=== PATIENT | male | born 2000 | race Caucasian/White ===

== ENCOUNTER 2024-09-06 12:17 | Emergency (ER) | payer BC, SELFPAY ==
[2024-09-06 12:28] VITALS: BP 152/85; PULSE 109; RESP 16; TEMP 36.4; O2SAT 99
[2024-09-06 14:02] LABS: EDSTREPNEGPOS1 Negative (Negative)
--- NOTE | 2024-09-06 14:06 | ED_ITS ---
HPI - URI/Sore Throat General Chief Complaint: Upper Respiratory Infection Stated Complaint: Strep Symptoms Time Seen by Provider: 09/06/24 13:59 Source: patient and RN notes reviewed Mode of arrival: ambulatory Limitations: no limitations History of Present Illness HPI Narrative: Patient presents today with a 2 day history of sore throat and headache with a fever of 100.5 yesterday morning, but none since then. Denies cough, rhinorrhea, congestion, ear pain. He currently rates his pain 5/10 and has tried Tylenol with little relief. Patient also took 2 doses of amoxicillin yesterday from a leftover prescription. Denies known sick contacts. Related Data Allergies Allergy/AdvReac Type Severity Reaction Status Date / Time No Known Allergies Allergy Verified 09/06/24 12:32 [facility] Comments At time of signature, I have reviewed and agree with nursing past medical, surgical, social and family history unless otherwise noted. Please see nursing chart for further information. There is no relevant family history pertinent to the presenting complaint Exam Narrative: GENERAL: Well-appearing, well-nourished, and in no acute distress. HEAD: Normocephalic, atraumatic. EYES: EOMI. No redness or drainage. Conjunctivae normal. ENT: Mucous membranes pink and moist. Nares clear. No rhinorrhea. TMs normal bilaterally. Throat erythematous with moderate edema. Tonsils 3+ with white exudate. Uvula midline. NECK: Normal AROM. Supple. Bilateral anterior cervical chain lymphadenopathy. CHEST: No respiratory distress. Clear to auscultation. HEART: Regular rate and rhythm. No murmur appreciated. EXTREMITIES: Normal range of motion. No edema. SKIN: Warm, dry, no rash. Capillary refill normal. Normal skin turgor. NEURO: No focal deficits. Alert and oriented x3. Gait steady. PSYCH: Normal affect. No signs of depression or anxiety. Course Course Level of Care: Express Care Visit Vital Signs Vital signs: Vital Signs Temperature 97.6 F 09/06/24 12:28 Pulse Rate 109 H 09/06/24 12:28 Respiratory Rate 16 09/06/24 12:28 Blood Pressure 152/85 H 09/06/24 12:28 Pulse Oximetry 99 09/06/24 12:28 Temperature 97.6 F 09/06/24 12:28 Pulse Rate 109 H 09/06/24 12:28 Respiratory Rate 16 09/06/24 12:28 Blood Pressure 152/85 H 09/06/24 12:28 Pulse Oximetry 99 09/06/24 12:28 Reviewed MDM - URI/Sore Throat MDM Narrative Medical decision making narrative: 23-year-old male patient presents today complaining of sore throat and headache for 2 days with 1 time fever with a T-max of 100.5?. Denies any additional URI symptoms. He also took 2 doses of amoxicillin from leftover prescription. Rapid strep negative. Because patient is complaining of a sore throat but no other URI symptoms, along with his swollen and erythematous tonsils, he will be treated for presumed strep throat with amoxicillin. Tachycardia likely due to infection. Discussion with patient about finishing full course antibiotics. Anticipatory guidance given. Differential Diagnosis Differential diagnosis: Likely upper respiratory infection, viral infection, pharyngitis and other (Strep throat, mononucleosis) Lab Data Attestation: I reviewed the patient's lab results. Labs: Lab Results 09/06/24 Range/Units 13:59 POC Grp A Strep Screen Negative (Negative) Critical Care Time Critical Care Time Critical Care Time: No Discharge Plan Discharge Clinical Impression: Pharyngitis Qualifiers: Pharyngitis/tonsillitis etiology: unspecified etiology Qualified Code(s): J02.9 - Acute pharyngitis, unspecified Patient Disposition: Home Condition: Stable Instructions: Antibiotic Form, Strep Throat (DC) Additional Instructions: You are being treated for presumed strep throat with amoxicillin. Please take the amoxicillin as prescribed until gone. Continue [id number] medication as needed for pain. Follow-up with your PCP in 3 days if symptoms are not improving. Go to the ER immediately if you develop worsening symptoms such as shortness of breath or difficulty swallowing. Your blood pressure was elevated above 120/80 today at Urgent Care. This puts you above the threshold for follow up. Please schedule a followup visit with your personal physician as soon as possible, for further evaluation and anna marie atment. Even blood pressure exceeding 120/80 may indicate pre-hypertension. Patient Language: Kinyarwanda Prescriptions: New amoxicillin 875 mg tablet 875 mg PO Q12H 10 Days Qty: 20 0RF Follow-up/Referrals: PHYSICIAN,HUMIDIFIER ATTENDANT [Primary Care Provider] - Time of Disposition: 14:11
== END 2024-09-06 14:17 | disposition home or self-care (01) ==
PROVIDERS: Emergency Provider Nurse Practitioner
DX: J02.9 Acute pharyngitis, unspecified (principal)
CPT/HCPCS: 87081; 87880; 99203; G0463